=== PATIENT | female | born 1945 ===

== ENCOUNTER 2021-06-10 09:49 | Inpatient (IN) | payer OTHER ==
[~2021-06-10] VITALS: Ht 162.6 cm; Wt 83.6 kg
[2021-06-10] MEDS ORDERED: IPRATROPIUM BROM 0.5 MG/2.5ML INH SOL NEB ONE ×2 (10:15→15:15)
[2021-06-10] MEDS ORDERED: ALBUTEROL SULF 2.5 MG/0.5ML(0.5%) NEB SOLN NEB ONE (10:15)
[2021-06-10] MEDS ORDERED: DexAMETHasone SOD PHOS 10MG/1ML VIAL INJ IV ONE (10:15)
[2021-06-10 10:31] LABS: Basophils # (auto) 0.1 10 ^3/uL (0-0.2); Basophils % (auto) 1.3 % (0.0-2.0); Eosinophils # (auto) 0 10 ^3/uL (0-0.8); Eosinophils % (auto) 0.2 % (0.0-7.0); Hematocrit 39.6 % (36.0-46.0); Hemoglobin 13.1 g/dL (12.2-16.2); Lymphocytes # (auto) 0.3 10 ^3/uL (0.4-5.4); Lymphocytes % (auto) 4.6 % (10.0-50.0); Mean Corpuscular Hemoglobin 27.9 pg (28.0-32.0); Mean Corpuscular Volume 84.5 fL (80.0-100.0); Monocytes # (auto) 0.3 10 ^3/uL (0-1.3); Monocytes % (auto) 4.3 % (0.0-12.0); Neutrophils # (auto) 6.4 10 ^3/uL (1.6-8.6); Neutrophils % (auto) 89.6 % (37.0-80.0); Nucleated Red Blood Cells % 0.1 %; Red Blood Cells 4.69 10^6/uL (4.0-5.20); Red Cell Distribution Width 13.8 % (11.8-14.3); White Blood Cell 7.2 10^3/uL (4.4-10.8)
[2021-06-10] MEDS ORDERED: ONDANSETRON HCL 4 MG/2 ML VIAL ONE (10:45)
[2021-06-10 10:47] LABS: INR 1.02 (0.9-1.15); Partial Thromboplastin Time 25.4 sec (23.6-33.0)
[2021-06-10] MEDS ORDERED: ONDANSETRON HCL 4 MG/2 ML VIAL IV ONE (11:00)
[2021-06-10 11:36] LABS: Albumin 3.2 g/dL (3.4-5.0); BUN/Creatinine Ratio 19.8; Bilirubin, Total 0.7 mg/dL (0.2-1.0); Calcium 8.9 mg/dL (8.5-10.1); Total Protein 7.1 g/dL (6.4-8.2)
[2021-06-10] MEDS ORDERED: cefTRIAXone 1GM/50ML D5W 50 ML IV ONE (12:30)
[2021-06-10] MEDS ORDERED: AZITHROMYCIN 500MG/ 250ML 250 ML IV ONE (12:30)
[2021-06-10] MEDS ORDERED: NITROGLYCERIN 0.4 MG SL TAB SL PRN (12:30)
[2021-06-10] MEDS ORDERED: ACETAMINOPHEN 325 MG TAB PO ONE (12:30)
[2021-06-10] MEDS ORDERED: ACETAMINOPHEN 500 MG TAB PO PRN (14:45)
[2021-06-10] MEDS ORDERED: REMDESIVIR PER PHARMACY 0 ML IV SCH (14:45)
[2021-06-10] MEDS ORDERED: DEXTROSE (50%) 50ML SYRG IV PRN (14:45)
[2021-06-10] MEDS: ASCORBIC ACID 1,000 MG TAB PO SCH (14:54)
[2021-06-10] MEDS: ZINC SULFATE 220mg CAP or TAB PO SCH (14:54)
[2021-06-10] MEDS: CHOLECALCIFEROL (VITD3) 2,000 UNIT CAP/TAB PO SCH (14:54)
[2021-06-10] MEDS ORDERED: HYDROcodone-ACET 5/325MG TAB PO ONE (15:15)
[2021-06-10] MEDS ORDERED: FAMOTIDINE (10MG/ML) 2ML VL IV ONE (15:15)
[2021-06-10] MEDS ORDERED: HYDROcodone-ACET 5/325MG TAB PO PRN (15:15)
[2021-06-10] MEDS ORDERED: DOCUSATE SOD 100 MG CAP PO PRN (15:15)
[2021-06-10] MEDS ORDERED: ALBUMIN 25% 100 ML IV ONE (15:15)
[2021-06-10] MEDS ORDERED: REMDESIVIR 200 MG in NS 210ml LOADING DOSE ADULT IV ONE (16:30)
[2021-06-10 16:44] LABS: Albumin 2.8 g/dL (3.4-5.0); Calcium 8.5 mg/dL (8.5-10.1); INR 1.04 (0.9-1.15); Partial Thromboplastin Time 27.4 sec (23.6-33.0); Potassium 3.8 mmol/L (3.5-5.1)
[2021-06-10 16:53] LABS: BUN/Creatinine Ratio 23.2; Bilirubin, Total 0.5 mg/dL (0.2-1.0); CRP High Sensitivity 14.5 mg/dL (< 0.3); Total Protein 6.6 g/dL (6.4-8.2)
[2021-06-10] MEDS: ACCU-CHEK COMFORT CURVE STRIP VI SCH ×2 (17:00→21:48)
[2021-06-10] MEDS: InsuLIN REG 1unit/0.01ml Soln (100units/ml) SC SCH ×2 (17:00→21:48)
[2021-06-10] MEDS: FUROSEMIDE 20 MG/2 ML VIAL IV SCH (17:33)
[2021-06-10] MEDS ORDERED: IPRATROPIUM BROM 0.5 MG/2.5ML INH SOL NEB SCH (18:00)
[2021-06-10] MEDS ORDERED: PRE1T PO (18:52)
[2021-06-10] MEDS ORDERED: PRAM1TAB33 PO (18:52)
[2021-06-10] MEDS ORDERED: PREG100C PO (18:52)
[2021-06-10] MEDS ORDERED: LEVO112T4 PO (18:52)
[2021-06-10] MEDS ORDERED: CLOP75TA70 PO (18:52)
[2021-06-10] MEDS ORDERED: BUME2TAB5 PO (18:52)
[2021-06-10] MEDS ORDERED: INSLANTI SC ×3 (18:52→22:13)
[2021-06-10] MEDS ORDERED: FURO20TA3 PO (18:52)
[2021-06-10] MEDS ORDERED: TOPI50TA53 PO (18:52)
[2021-06-10] MEDS ORDERED: LISI20TA28 PO (18:52)
[2021-06-10] MEDS ORDERED: LOVA40TA72 PO (18:52)
[2021-06-10] MEDS ORDERED: HYDR-4188 PO (18:52)
[2021-06-10] MEDS ORDERED: POTA10TA51 PO (18:52)
[2021-06-10] MEDS ORDERED: MONT-8 PO (18:52)
[2021-06-10] MEDS ORDERED: METO10TA3 PO (18:52)
[2021-06-10] MEDS ORDERED: PANT1INJ3 PO (18:52)
[2021-06-10 19:01] VITALS: BP 136/91
[2021-06-10] MEDS: BUDESONIDE (INHALATION) 180 MCG IH IN SCH (19:46)
[2021-06-10] MEDS: ALBUTEROL SULF HFA 90MCG INH 200DOSE IN PRN (19:46)
[2021-06-10] MEDS: POTASSIUM CHL 20 Meq TABLET PO SCH (21:44)
[2021-06-10] MEDS: DOXYCYCLINE 100MG/250ML 250 ML IV SCH (21:44)
[2021-06-10] MEDS: ATORVASTATIN 20 MG TAB PO SCH (21:44)
[2021-06-10] MEDS: ENOXAPARIN SOD 40 MG/0.4 ML SYRINGE SC SCH (21:48)
[2021-06-10 22:00] VITALS: BP 132/63
[2021-06-11 05:00] VITALS: BP 147/65
[2021-06-11] MEDS: FUROSEMIDE 20 MG/2 ML VIAL IV SCH ×2 (05:37→17:19)
[2021-06-11] MEDS: ACCU-CHEK COMFORT CURVE STRIP VI SCH ×4 (06:40→21:43)
[2021-06-11 06:42] LABS: Basophils # (auto) 0 10 ^3/uL (0-0.2); Basophils % (auto) 0.3 % (0.0-2.0); Eosinophils # (auto) 0 10 ^3/uL (0-0.8); Hematocrit 36.6 % (36.0-46.0); Hemoglobin 12.1 g/dL (12.2-16.2); Lymphocytes # (auto) 0.4 10 ^3/uL (0.4-5.4); Mean Corpuscular Hemoglobin 27.8 pg (28.0-32.0); Mean Corpuscular Volume 84.3 fL (80.0-100.0); Monocytes # (auto) 0.3 10 ^3/uL (0-1.3); Monocytes % (auto) 5.9 % (0.0-12.0); Neutrophils % (auto) 86.8 % (37.0-80.0); Nucleated Red Blood Cells % 0.1 %; Red Blood Cells 4.34 10^6/uL (4.0-5.20); White Blood Cell 5.7 10^3/uL (4.4-10.8)
[2021-06-11] MEDS: InsuLIN REG 1unit/0.01ml Soln (100units/ml) SC SCH ×4 (06:43→21:45)
[2021-06-11 06:55] LABS: Albumin 2.9 g/dL (3.4-5.0); Calcium 8.3 mg/dL (8.5-10.1); Partial Thromboplastin Time 31.4 sec (23.6-33.0); Potassium 3.9 mmol/L (3.5-5.1)
[2021-06-11] MEDS ORDERED: InsuLIN REG 1unit/0.01ml Soln (100units/ml) SC SCH (07:00)
[2021-06-11 07:01] LABS: BUN/Creatinine Ratio 25.2; Bilirubin, Total 0.5 mg/dL (0.2-1.0); Total Protein 6.6 g/dL (6.4-8.2)
[2021-06-11 08:53] VITALS: BP 157/74
[2021-06-11 09:37] VITALS: BP 135/60
[2021-06-11] MEDS: DOXYCYCLINE 100MG/250ML 250 ML IV SCH ×2 (09:40→21:43)
[2021-06-11] MEDS: DexAMETHasone SOD PHOS 10MG/1ML VIAL INJ IV SCH (09:40)
[2021-06-11] MEDS: POTASSIUM CHL 20 Meq TABLET PO SCH ×2 (09:40→21:42)
[2021-06-11] MEDS: ZINC SULFATE 220mg CAP or TAB PO SCH (09:40)
[2021-06-11] MEDS: ASCORBIC ACID 1,000 MG TAB PO SCH (09:41)
[2021-06-11] MEDS: ENOXAPARIN SOD 40 MG/0.4 ML SYRINGE SC SCH ×2 (09:41→21:43)
[2021-06-11] MEDS: CLOPIDOGREL BISULFATE 75 MG TAB PO SCH (09:41)
[2021-06-11] MEDS: CHOLECALCIFEROL (VITD3) 2,000 UNIT CAP/TAB PO SCH (09:41)
[2021-06-11] MEDS ORDERED: FAMOTIDINE (10MG/ML) 2ML VL IV SCH (10:00)
[2021-06-11] MEDS: BUDESONIDE (INHALATION) 180 MCG IH IN SCH ×2 (10:00→22:00)
[2021-06-11 12:44] VITALS: BP 146/67
[2021-06-11] MEDS: SODIUM CHLORIDE 0.9% 1,000 ML IV SCH (13:16)
[2021-06-11] MEDS: REMDESIVIR 100mg 100 MG in SODIUM CHL 0.9% 230 ML IV SCH (14:53)
[2021-06-11] MEDS ORDERED: guaiFENesin-DM 100/10mg/5ml SYR PO PRN (16:30)
[2021-06-11 16:39] VITALS: BP 118/83
[2021-06-11] MEDS: BUMETANIDE 1 MG TAB PO SCH (17:36)
[2021-06-11] MEDS: LORazepam 0.5 MG TAB PO PRN (21:10)
[2021-06-11] MEDS: PREGABALIN 25 MG CAP PO SCH (21:42)
[2021-06-11] MEDS: ATORVASTATIN 20 MG TAB PO SCH (21:42)
[2021-06-11] MEDS: MONTELUKAST SODIUM 10 MG TAB PO SCH (21:43)
[2021-06-11 22:00] VITALS: BP 152/63
[2021-06-11] MEDS: ALBUTEROL SULF HFA 90MCG INH 200DOSE IN PRN (22:16)
[2021-06-12] MEDS: SODIUM CHLORIDE 0.9% 1,000 ML IV SCH (04:06)
[2021-06-12] MEDS: guaiFENesin-DM 100/10mg/5ml SYR PO PRN ×3 (04:17→22:16)
[2021-06-12 05:00] VITALS: BP 115/54
[2021-06-12] MEDS: ALBUTEROL SULF HFA 90MCG INH 200DOSE IN PRN (06:01)
[2021-06-12] MEDS: BUDESONIDE (INHALATION) 180 MCG IH IN SCH ×2 (06:01→22:00)
[2021-06-12] MEDS: BUMETANIDE 1 MG TAB PO SCH ×2 (06:20→18:00)
[2021-06-12] MEDS: LEVOTHYROXINE SODIUM 112 MCG TAB PO SCH (06:32)
[2021-06-12] MEDS: ACCU-CHEK COMFORT CURVE STRIP VI SCH ×4 (06:33→22:15)
[2021-06-12] MEDS: InsuLIN REG 1unit/0.01ml Soln (100units/ml) SC SCH ×4 (06:33→22:19)
[2021-06-12 07:46] LABS: Basophils # (auto) 0 10 ^3/uL (0-0.2); Basophils % (auto) 0.2 % (0.0-2.0); Eosinophils # (auto) 0 10 ^3/uL (0-0.8); Hematocrit 37.4 % (36.0-46.0); Lymphocytes # (auto) 0.4 10 ^3/uL (0.4-5.4); Lymphocytes % (auto) 5.9 % (10.0-50.0); Mean Corpuscular Hemoglobin 27.6 pg (28.0-32.0); Mean Corpuscular Hgb Conc. 32.1 g/dL (32.0-36.0); Mean Corpuscular Volume 86.1 fL (80.0-100.0); Monocytes # (auto) 0.4 10 ^3/uL (0-1.3); Monocytes % (auto) 6.7 % (0.0-12.0); Neutrophils # (auto) 5.2 10 ^3/uL (1.6-8.6); Neutrophils % (auto) 87.2 % (37.0-80.0); Nucleated Red Blood Cells % 0.2 %; Red Blood Cells 4.35 10^6/uL (4.0-5.20); Red Cell Distribution Width 13.9 % (11.8-14.3)
[2021-06-12 08:02] LABS: Albumin 2.7 g/dL (3.4-5.0); Calcium 8.7 mg/dL (8.5-10.1); Potassium 4.4 mmol/L (3.5-5.1)
[2021-06-12 09:00] VITALS: BP 146/65
[2021-06-12] MEDS: PREGABALIN 25 MG CAP PO SCH ×2 (09:32→22:00)
[2021-06-12] MEDS: CLOPIDOGREL BISULFATE 75 MG TAB PO SCH (09:32)
[2021-06-12] MEDS: POTASSIUM CHL 20 Meq TABLET PO SCH ×2 (09:32→22:00)
[2021-06-12] MEDS: DexAMETHasone SOD PHOS 10MG/1ML VIAL INJ IV SCH (09:32)
[2021-06-12] MEDS: ZINC SULFATE 220mg CAP or TAB PO SCH (09:32)
[2021-06-12] MEDS: ASCORBIC ACID 1,000 MG TAB PO SCH (09:33)
[2021-06-12] MEDS: ENOXAPARIN SOD 40 MG/0.4 ML SYRINGE SC SCH ×2 (09:33→22:15)
[2021-06-12] MEDS: CHOLECALCIFEROL (VITD3) 2,000 UNIT CAP/TAB PO SCH (09:33)
[2021-06-12 10:56] LABS: BUN/Creatinine Ratio 29.4
[2021-06-12] MEDS: PANTOPRAZOLE 40 MG TAB PO SCH (11:04)
[2021-06-12 11:15] LABS: Bilirubin, Total 0.5 mg/dL (0.2-1.0); Total Protein 6.3 g/dL (6.4-8.2)
[2021-06-12] MEDS: REMDESIVIR 100mg 100 MG in SODIUM CHL 0.9% 230 ML IV SCH (11:26)
[2021-06-12 12:50] LABS: CRP High Sensitivity 11.7 mg/dL (< 0.3)
[2021-06-12 13:00] VITALS: BP 132/65
[2021-06-12] MEDS ORDERED: BUME1TAB3 PO (13:01)
[2021-06-12] MEDS ORDERED: LISI-716 PO (13:01)
[2021-06-12] MEDS ORDERED: PRED10TA PO (13:01)
[2021-06-12] MEDS ORDERED: PRAM1TAB2 PO (15:02)
[2021-06-12] MEDS ORDERED: PANT40TA2 PO (15:02)
[2021-06-12] MEDS ORDERED: LEVO100T8 PO (15:02)
[2021-06-12 17:00] VITALS: BP 139/83
[2021-06-12] MEDS: DOXYCYCLINE 100MG/250ML 250 ML IV SCH (18:02)
[2021-06-12 20:00] VITALS: BP 138/74
[2021-06-12 22:00] VITALS: BP 138/74
[2021-06-12] MEDS: MONTELUKAST SODIUM 10 MG TAB PO SCH (22:00)
[2021-06-12] MEDS: ATORVASTATIN 20 MG TAB PO SCH (22:00)
[2021-06-13] VITALS (7 sets, daily range): BP systolic 123–166; BP diastolic 62–75
[2021-06-13] MEDS: guaiFENesin-DM 100/10mg/5ml SYR PO PRN ×2 (03:47→22:07)
[2021-06-13] MEDS: DOXYCYCLINE 100MG/250ML 250 ML IV SCH ×2 (05:03→16:50)
[2021-06-13] MEDS: BUMETANIDE 1 MG TAB PO SCH ×2 (06:00→17:38)
[2021-06-13] MEDS: LEVOTHYROXINE SODIUM 112 MCG TAB PO SCH (06:28)
[2021-06-13] MEDS: ACCU-CHEK COMFORT CURVE STRIP VI SCH ×4 (06:29→22:07)
[2021-06-13] MEDS: InsuLIN REG 1unit/0.01ml Soln (100units/ml) SC SCH ×4 (06:31→22:39)
[2021-06-13 07:03] LABS: Calcium 9.3 mg/dL (8.5-10.1); Potassium 4.2 mmol/L (3.5-5.1)
[2021-06-13 07:11] LABS: BUN/Creatinine Ratio 33.3; Bilirubin, Total 0.7 mg/dL (0.2-1.0); CRP High Sensitivity 8.2 mg/dL (< 0.3); Total Protein 6.9 g/dL (6.4-8.2)
[2021-06-13] MEDS: BUDESONIDE (INHALATION) 180 MCG IH IN SCH ×2 (09:58→22:00)
[2021-06-13] MEDS: ZINC SULFATE 220mg CAP or TAB PO SCH (10:00)
[2021-06-13] MEDS: ASCORBIC ACID 1,000 MG TAB PO SCH (10:00)
[2021-06-13] MEDS: PREGABALIN 25 MG CAP PO SCH ×2 (10:00→22:00)
[2021-06-13] MEDS: PANTOPRAZOLE 40 MG TAB PO SCH (10:00)
[2021-06-13] MEDS: POTASSIUM CHL 20 Meq TABLET PO SCH ×2 (10:00→22:00)
[2021-06-13] MEDS: CLOPIDOGREL BISULFATE 75 MG TAB PO SCH (10:00)
[2021-06-13] MEDS: CHOLECALCIFEROL (VITD3) 2,000 UNIT CAP/TAB PO SCH (10:00)
[2021-06-13] MEDS: ENOXAPARIN SOD 40 MG/0.4 ML SYRINGE SC SCH ×2 (10:23→22:08)
[2021-06-13] MEDS: DexAMETHasone SOD PHOS 10MG/1ML VIAL INJ IV SCH (10:23)
[2021-06-13] MEDS: PANTOPRAZOLE 40 MG/10 ML VIAL INJ IV SCH (13:55)
[2021-06-13] MEDS: REMDESIVIR 100mg 100 MG in SODIUM CHL 0.9% 230 ML IV SCH (15:14)
[2021-06-13] MEDS: hydrALAZINE HCL 20 MG/ML VL IV PRN (18:11)
[2021-06-13] MEDS: ATORVASTATIN 20 MG TAB PO SCH (22:00)
[2021-06-13] MEDS: MONTELUKAST SODIUM 10 MG TAB PO SCH (22:00)
[2021-06-14] MEDS: ONDANSETRON HCL 4 MG/2 ML VIAL IV PRN (00:43)
[2021-06-14] MEDS: DOXYCYCLINE 100MG/250ML 250 ML IV SCH ×2 (04:59→18:06)
[2021-06-14 05:00] VITALS: BP 150/74
[2021-06-14] MEDS: BUDESONIDE (INHALATION) 180 MCG IH IN SCH ×2 (05:47→20:52)
[2021-06-14] MEDS: ALBUTEROL SULF HFA 90MCG INH 200DOSE IN PRN (05:48)
[2021-06-14] MEDS: BUMETANIDE 1 MG TAB PO SCH ×2 (06:00→18:00)
[2021-06-14 06:11] LABS: Albumin 2.7 g/dL (3.4-5.0); Calcium 8.7 mg/dL (8.5-10.1); Potassium 4.4 mmol/L (3.5-5.1)
[2021-06-14 06:19] LABS: BUN/Creatinine Ratio 30.5; Bilirubin, Total 0.8 mg/dL (0.2-1.0); CRP High Sensitivity 6.87 mg/dL (< 0.3); Total Protein 5.7 g/dL (6.4-8.2)
[2021-06-14] MEDS: ACCU-CHEK COMFORT CURVE STRIP VI SCH ×4 (06:44→23:56)
[2021-06-14] MEDS: LEVOTHYROXINE SODIUM 112 MCG TAB PO SCH (06:44)
[2021-06-14] MEDS: InsuLIN REG 1unit/0.01ml Soln (100units/ml) SC SCH ×4 (06:46→23:57)
[2021-06-14 09:00] VITALS: BP 148/73
[2021-06-14] MEDS: DexAMETHasone SOD PHOS 10MG/1ML VIAL INJ IV SCH (09:46)
[2021-06-14] MEDS: PANTOPRAZOLE 40 MG/10 ML VIAL INJ IV SCH (09:46)
[2021-06-14] MEDS: ENOXAPARIN SOD 40 MG/0.4 ML SYRINGE SC SCH ×2 (09:47→21:21)
[2021-06-14] MEDS: PREGABALIN 25 MG CAP PO SCH ×2 (10:00→22:00)
[2021-06-14] MEDS: CHOLECALCIFEROL (VITD3) 2,000 UNIT CAP/TAB PO SCH (10:00)
[2021-06-14] MEDS: CLOPIDOGREL BISULFATE 75 MG TAB PO SCH (10:00)
[2021-06-14] MEDS: ZINC SULFATE 220mg CAP or TAB PO SCH (10:00)
[2021-06-14] MEDS: POTASSIUM CHL 20 Meq TABLET PO SCH ×2 (10:00→22:00)
[2021-06-14] MEDS: ASCORBIC ACID 1,000 MG TAB PO SCH (10:00)
[2021-06-14 13:00] VITALS: BP 138/56
[2021-06-14] MEDS ORDERED: PPN PER PHARMACY 0 ML IV SCH (14:30)
[2021-06-14] MEDS: REMDESIVIR 100mg 100 MG in SODIUM CHL 0.9% 230 ML IV SCH (15:34)
[2021-06-14] MEDS ORDERED: DEXTROSE (50%) 50ML SYRG IV SCH (16:45)
[2021-06-14 17:00] VITALS: BP 130/51
[2021-06-14 20:00] VITALS: BP 132/70
[2021-06-14] MEDS: AMINO ACID INFUSION IN D10W 1,000 ML IV NR (20:27)
[2021-06-14 21:59] VITALS: BP 132/70
[2021-06-14] MEDS: MONTELUKAST SODIUM 10 MG TAB PO SCH (22:00)
[2021-06-14] MEDS: ATORVASTATIN 20 MG TAB PO SCH (22:00)
[2021-06-15 04:39] VITALS: BP 128/66
[2021-06-15 05:36] LABS: Potassium 3.9 mmol/L (3.5-5.1)
[2021-06-15] MEDS: DOXYCYCLINE 100MG/250ML 250 ML IV SCH ×2 (05:45→14:59)
[2021-06-15] MEDS: ACCU-CHEK COMFORT CURVE STRIP VI SCH ×3 (05:45→17:17)
[2021-06-15] MEDS: BUMETANIDE 1 MG TAB PO SCH ×2 (06:00→17:41)
[2021-06-15 06:04] LABS: Albumin 2.4 g/dL (3.4-5.0); BUN/Creatinine Ratio 34.4; Bilirubin, Total 0.7 mg/dL (0.2-1.0); CRP High Sensitivity 6.41 mg/dL (< 0.3); Calcium 8.7 mg/dL (8.5-10.1); Magnesium 2.6 mg/dL (1.6-2.6); Phosphorus 3.7 mg/dL (2.5-4.90); Pre Albumin 9.7 mg/dL (20.0-40.0)
[2021-06-15] MEDS: LEVOTHYROXINE SODIUM 112 MCG TAB PO SCH (06:15)
[2021-06-15] MEDS: InsuLIN REG 1unit/0.01ml Soln (100units/ml) SC SCH ×3 (06:16→17:17)
[2021-06-15] MEDS: BUDESONIDE (INHALATION) 180 MCG IH IN SCH ×2 (06:18→19:55)
[2021-06-15] MEDS: ALBUTEROL SULF HFA 90MCG INH 200DOSE IN PRN ×2 (07:29→19:55)
[2021-06-15 08:30] VITALS: BP 149/56
[2021-06-15] MEDS: DexAMETHasone SOD PHOS 10MG/1ML VIAL INJ IV SCH (09:58)
[2021-06-15] MEDS: PANTOPRAZOLE 40 MG/10 ML VIAL INJ IV SCH (09:59)
[2021-06-15] MEDS: PREGABALIN 25 MG CAP PO SCH ×3 (10:00→22:00)
[2021-06-15] MEDS: POTASSIUM CHL 20 Meq TABLET PO SCH ×3 (10:00→22:00)
[2021-06-15] MEDS: ASCORBIC ACID 1,000 MG TAB PO SCH (10:00)
[2021-06-15] MEDS: CHOLECALCIFEROL (VITD3) 2,000 UNIT CAP/TAB PO SCH (10:00)
[2021-06-15] MEDS: ZINC SULFATE 220mg CAP or TAB PO SCH (10:00)
[2021-06-15] MEDS: ENOXAPARIN SOD 40 MG/0.4 ML SYRINGE SC SCH ×2 (10:00→21:58)
[2021-06-15] MEDS: CLOPIDOGREL BISULFATE 75 MG TAB PO SCH (10:00)
[2021-06-15 12:30] VITALS: BP 138/63
[2021-06-15 17:00] VITALS: BP 137/63
[2021-06-15] MEDS: AMINO ACID INFUSION IN D10W 1,000 ML IV NR (19:49)
[2021-06-15 20:00] VITALS: BP 130/60
[2021-06-15] MEDS ORDERED: PPN PER PHARMACY IV NR ×6 (20:00)
[2021-06-15] MEDS: ONDANSETRON HCL 4 MG/2 ML VIAL IV PRN (21:08)
[2021-06-15 21:42] VITALS: BP_SYST 130; BP_SYST 160; BP_DIAS 60
[2021-06-15] MEDS: MONTELUKAST SODIUM 10 MG TAB PO SCH ×2 (21:58→22:00)
[2021-06-15] MEDS: ATORVASTATIN 20 MG TAB PO SCH ×2 (21:58→22:00)
[2021-06-16] VITALS (9 sets, daily range): BP systolic 143–163; BP diastolic 51–90
[2021-06-16] MEDS: InsuLIN REG 1unit/0.01ml Soln (100units/ml) SC SCH ×4 (00:17→16:37)
[2021-06-16] MEDS: ACCU-CHEK COMFORT CURVE STRIP VI SCH ×4 (00:18→18:00)
[2021-06-16] MEDS: BUMETANIDE 1 MG TAB PO SCH ×2 (06:12→18:00)
[2021-06-16 06:40] LABS: Albumin 2.6 g/dL (3.4-5.0); Calcium 9.2 mg/dL (8.5-10.1); Magnesium 2.4 mg/dL (1.6-2.6)
[2021-06-16] MEDS: BUDESONIDE (INHALATION) 180 MCG IH IN SCH ×2 (06:40→19:24)
[2021-06-16] MEDS: ALBUTEROL SULF HFA 90MCG INH 200DOSE IN PRN ×2 (06:40→19:24)
[2021-06-16] MEDS: LEVOTHYROXINE SODIUM 112 MCG TAB PO SCH (06:43)
[2021-06-16 06:49] LABS: Bilirubin, Total 0.8 mg/dL (0.2-1.0); CRP High Sensitivity 6.96 mg/dL (< 0.3); Phosphorus 3.1 mg/dL (2.5-4.90); Total Protein 6.5 g/dL (6.4-8.2)
[2021-06-16] MEDS: DexAMETHasone SOD PHOS 10MG/1ML VIAL INJ IV SCH (08:09)
[2021-06-16] MEDS: ENOXAPARIN SOD 40 MG/0.4 ML SYRINGE SC SCH ×2 (08:09→22:44)
[2021-06-16] MEDS: PANTOPRAZOLE 40 MG/10 ML VIAL INJ IV SCH (08:09)
[2021-06-16] MEDS: POTASSIUM CHL 20 Meq TABLET PO SCH ×2 (08:10→22:00)
[2021-06-16] MEDS: PREGABALIN 25 MG CAP PO SCH ×2 (08:10→22:00)
[2021-06-16] MEDS: CHOLECALCIFEROL (VITD3) 2,000 UNIT CAP/TAB PO SCH (08:10)
[2021-06-16] MEDS: ZINC SULFATE 220mg CAP or TAB PO SCH (08:10)
[2021-06-16] MEDS: CLOPIDOGREL BISULFATE 75 MG TAB PO SCH (08:10)
[2021-06-16] MEDS: ASCORBIC ACID 1,000 MG TAB PO SCH (08:10)
[2021-06-16 10:48] LABS: Basophils # (auto) 0 10 ^3/uL (0-0.2); Basophils % (auto) 0.3 % (0.0-2.0); Eosinophils # (auto) 0 10 ^3/uL (0-0.8); Eosinophils % (auto) 0.1 % (0.0-7.0); Hematocrit 42.1 % (36.0-46.0); Hemoglobin 13.6 g/dL (12.2-16.2); Lymphocytes # (auto) 0.2 10 ^3/uL (0.4-5.4); Lymphocytes % (auto) 2.5 % (10.0-50.0); Mean Corpuscular Hemoglobin 27.8 pg (28.0-32.0); Mean Corpuscular Hgb Conc. 32.4 g/dL (32.0-36.0); Mean Corpuscular Volume 85.8 fL (80.0-100.0); Monocytes # (auto) 0.5 10 ^3/uL (0-1.3); Monocytes % (auto) 4.8 % (0.0-12.0); Neutrophils # (auto) 9.2 10 ^3/uL (1.6-8.6); Neutrophils % (auto) 92.3 % (37.0-80.0); Nucleated Red Blood Cells % 0.1 %; Red Blood Cells 4.91 10^6/uL (4.0-5.20); Red Cell Distribution Width 13.7 % (11.8-14.3); White Blood Cell 9.9 10^3/uL (4.4-10.8)
[2021-06-16] MEDS ORDERED: PPN PER PHARMACY IV NR ×9 (20:00)
[2021-06-16] MEDS: ONDANSETRON HCL 4 MG/2 ML VIAL IV PRN (20:25)
[2021-06-16] MEDS: MONTELUKAST SODIUM 10 MG TAB PO SCH (22:00)
[2021-06-16] MEDS: ATORVASTATIN 20 MG TAB PO SCH (22:00)
[2021-06-17] MEDS: ACCU-CHEK COMFORT CURVE STRIP VI SCH ×4 (00:33→17:44)
[2021-06-17] MEDS: InsuLIN REG 1unit/0.01ml Soln (100units/ml) SC SCH ×4 (00:33→17:40)
[2021-06-17 05:00] VITALS: BP 127/61
[2021-06-17] MEDS: BUMETANIDE 1 MG TAB PO SCH ×2 (05:41→17:44)
[2021-06-17 06:01] LABS: Basophils # (auto) 0.1 10 ^3/uL (0-0.2); Basophils % (auto) 0.7 % (0.0-2.0); Eosinophils # (auto) 0 10 ^3/uL (0-0.8); Eosinophils % (auto) 0.2 % (0.0-7.0); Hematocrit 42.9 % (36.0-46.0); Lymphocytes # (auto) 0.2 10 ^3/uL (0.4-5.4); Lymphocytes % (auto) 1.6 % (10.0-50.0); Mean Corpuscular Hemoglobin 27.7 pg (28.0-32.0); Mean Corpuscular Hgb Conc. 32.5 g/dL (32.0-36.0); Monocytes # (auto) 0.4 10 ^3/uL (0-1.3); Monocytes % (auto) 3.3 % (0.0-12.0); Neutrophils # (auto) 10.6 10 ^3/uL (1.6-8.6); Neutrophils % (auto) 94.2 % (37.0-80.0); Nucleated Red Blood Cells % 0.1 %; Red Blood Cells 5.05 10^6/uL (4.0-5.20); White Blood Cell 11.3 10^3/uL (4.4-10.8)
[2021-06-17 06:23] LABS: Albumin 2.5 g/dL (3.4-5.0); Calcium 8.7 mg/dL (8.5-10.1); Magnesium 2.5 mg/dL (1.6-2.6); Potassium 4.6 mmol/L (3.5-5.1)
[2021-06-17 06:33] LABS: BUN/Creatinine Ratio 40.7; Bilirubin, Total 1.2 mg/dL (0.2-1.0); CRP High Sensitivity 12.7 mg/dL (< 0.3); Phosphorus 3.6 mg/dL (2.5-4.90); Total Protein 5.7 g/dL (6.4-8.2)
[2021-06-17] MEDS: LEVOTHYROXINE SODIUM 112 MCG TAB PO SCH (07:00)
[2021-06-17] MEDS: ALBUTEROL SULF HFA 90MCG INH 200DOSE IN PRN (07:20)
[2021-06-17] MEDS: BUDESONIDE (INHALATION) 180 MCG IH IN SCH ×2 (07:20→22:00)
[2021-06-17 08:27] VITALS: BP 128/72
[2021-06-17] MEDS: DexAMETHasone SOD PHOS 10MG/1ML VIAL INJ IV SCH (08:36)
[2021-06-17] MEDS: PANTOPRAZOLE 40 MG/10 ML VIAL INJ IV SCH (08:37)
[2021-06-17] MEDS: ENOXAPARIN SOD 40 MG/0.4 ML SYRINGE SC SCH ×2 (08:38→22:46)
[2021-06-17] MEDS: ZINC SULFATE 220mg CAP or TAB PO SCH (08:39)
[2021-06-17] MEDS: POTASSIUM CHL 20 Meq TABLET PO SCH ×2 (08:39→22:00)
[2021-06-17] MEDS: ASCORBIC ACID 1,000 MG TAB PO SCH (08:40)
[2021-06-17] MEDS: PREGABALIN 25 MG CAP PO SCH ×2 (08:40→22:00)
[2021-06-17] MEDS: CLOPIDOGREL BISULFATE 75 MG TAB PO SCH (08:40)
[2021-06-17] MEDS: CHOLECALCIFEROL (VITD3) 2,000 UNIT CAP/TAB PO SCH (08:40)
[2021-06-17] MEDS: LORazepam 0.5 MG TAB PO PRN (09:35)
[2021-06-17 11:57] VITALS: BP 133/65
[2021-06-17 16:45] VITALS: BP 167/71
[2021-06-17] MEDS ORDERED: PPN PER PHARMACY IV NR ×6 (20:00)
[2021-06-17 21:34] VITALS: BP 132/72
[2021-06-17] MEDS: MONTELUKAST SODIUM 10 MG TAB PO SCH (22:00)
[2021-06-17] MEDS: ATORVASTATIN 20 MG TAB PO SCH (22:00)
[2021-06-18] VITALS (10 sets, daily range): BP systolic 133–163; BP diastolic 51–80
[2021-06-18] MEDS: ACCU-CHEK COMFORT CURVE STRIP VI SCH ×4 (00:04→17:20)
[2021-06-18] MEDS: InsuLIN REG 1unit/0.01ml Soln (100units/ml) SC SCH ×4 (00:04→17:21)
[2021-06-18] MEDS: BUMETANIDE 1 MG TAB PO SCH ×2 (06:00→17:21)
[2021-06-18] MEDS: LEVOTHYROXINE SODIUM 112 MCG TAB PO SCH (06:24)
[2021-06-18 07:43] LABS: Eosinophils # (auto) 0.1 10 ^3/uL (0-0.8); Lymphocytes # (auto) 0.2 10 ^3/uL (0.4-5.4); Mean Corpuscular Volume 85.2 fL (80.0-100.0); Monocytes # (auto) 0.3 10 ^3/uL (0-1.3); Neutrophils % (auto) 95.2 % (37.0-80.0)
[2021-06-18 07:45] LABS: Basophils # (auto) 0 10 ^3/uL (0-0.2); Basophils % (auto) 0.4 % (0.0-2.0); Eosinophils % (auto) 0.7 % (0.0-7.0); Hematocrit 43.7 % (36.0-46.0); Hemoglobin 13.7 g/dL (12.2-16.2); Lymphocytes % (auto) 1.3 % (10.0-50.0); Mean Corpuscular Hemoglobin 26.8 pg (28.0-32.0); Mean Corpuscular Hgb Conc. 31.4 g/dL (32.0-36.0); Monocytes % (auto) 2.4 % (0.0-12.0); Neutrophils # (auto) 11.6 10 ^3/uL (1.6-8.6); Red Blood Cells 5.13 10^6/uL (4.0-5.20); Red Cell Distribution Width 14.2 % (11.8-14.3); White Blood Cell 12.2 10^3/uL (4.4-10.8)
[2021-06-18 07:58] LABS: Albumin 2.2 g/dL (3.4-5.0); Calcium 8.9 mg/dL (8.5-10.1); Potassium 3.9 mmol/L (3.5-5.1)
[2021-06-18 08:11] LABS: BUN/Creatinine Ratio 48.6; CRP High Sensitivity 17.4 mg/dL (< 0.3); Phosphorus 2.6 mg/dL (2.5-4.90); Total Protein 6.6 g/dL (6.4-8.2)
[2021-06-18] MEDS: DexAMETHasone SOD PHOS 10MG/1ML VIAL INJ IV SCH (09:04)
[2021-06-18] MEDS: PANTOPRAZOLE 40 MG/10 ML VIAL INJ IV SCH (09:05)
[2021-06-18] MEDS: ENOXAPARIN SOD 40 MG/0.4 ML SYRINGE SC SCH ×2 (09:05→21:54)
[2021-06-18] MEDS: PREGABALIN 25 MG CAP PO SCH ×2 (09:12→22:00)
[2021-06-18] MEDS: CHOLECALCIFEROL (VITD3) 2,000 UNIT CAP/TAB PO SCH (09:12)
[2021-06-18] MEDS: CLOPIDOGREL BISULFATE 75 MG TAB PO SCH (09:12)
[2021-06-18] MEDS: ZINC SULFATE 220mg CAP or TAB PO SCH (09:12)
[2021-06-18] MEDS: ASCORBIC ACID 1,000 MG TAB PO SCH (09:12)
[2021-06-18] MEDS: POTASSIUM CHL 20 Meq TABLET PO SCH ×2 (09:12→22:00)
[2021-06-18] MEDS: hydrALAZINE HCL 20 MG/ML VL IV PRN (10:11)
[2021-06-18] MEDS: BUDESONIDE (INHALATION) 180 MCG IH IN SCH ×2 (10:52→21:13)
[2021-06-18] MEDS ORDERED: PPN PER PHARMACY IV NR ×8 (20:00)
[2021-06-18] MEDS: ONDANSETRON HCL 4 MG/2 ML VIAL IV PRN (21:55)
[2021-06-18] MEDS: MONTELUKAST SODIUM 10 MG TAB PO SCH (22:00)
[2021-06-18] MEDS: ATORVASTATIN 20 MG TAB PO SCH (22:00)
[2021-06-19] VITALS (10 sets, daily range): BP systolic 135–156; BP diastolic 62–119
[2021-06-19] MEDS: ACCU-CHEK COMFORT CURVE STRIP VI SCH ×5 (00:26→23:18)
[2021-06-19] MEDS: InsuLIN REG 1unit/0.01ml Soln (100units/ml) SC SCH ×4 (00:31→17:26)
[2021-06-19] MEDS: BUMETANIDE 1 MG TAB PO SCH ×2 (06:00→17:13)
[2021-06-19 06:06] LABS: Basophils # (auto) 0 10 ^3/uL (0-0.2); Basophils % (auto) 0.3 % (0.0-2.0); Eosinophils # (auto) 0 10 ^3/uL (0-0.8); Hematocrit 41.5 % (36.0-46.0); Hemoglobin 13.8 g/dL (12.2-16.2); Lymphocytes # (auto) 0.2 10 ^3/uL (0.4-5.4); Lymphocytes % (auto) 1.8 % (10.0-50.0); Mean Corpuscular Hgb Conc. 33.1 g/dL (32.0-36.0); Mean Corpuscular Volume 84.4 fL (80.0-100.0); Monocytes # (auto) 0.5 10 ^3/uL (0-1.3); Monocytes % (auto) 4.2 % (0.0-12.0); Neutrophils # (auto) 10.7 10 ^3/uL (1.6-8.6); Neutrophils % (auto) 93.7 % (37.0-80.0); Nucleated Red Blood Cells % 0.1 %; Red Blood Cells 4.92 10^6/uL (4.0-5.20); White Blood Cell 11.5 10^3/uL (4.4-10.8)
[2021-06-19 06:30] LABS: BUN/Creatinine Ratio 60.4; Calcium 8.9 mg/dL (8.5-10.1); Magnesium 2.5 mg/dL (1.6-2.6); Potassium 4.1 mmol/L (3.5-5.1)
[2021-06-19 06:33] LABS: Bilirubin, Total 0.9 mg/dL (0.2-1.0); Phosphorus 3.3 mg/dL (2.5-4.90); Total Protein 6.1 g/dL (6.4-8.2)
[2021-06-19] MEDS: LEVOTHYROXINE SODIUM 112 MCG TAB PO SCH (07:00)
[2021-06-19] MEDS: BUDESONIDE (INHALATION) 180 MCG IH IN SCH ×2 (07:19→20:11)
[2021-06-19] MEDS: POTASSIUM CHL 20 Meq TABLET PO SCH ×2 (10:00→22:00)
[2021-06-19] MEDS: CHOLECALCIFEROL (VITD3) 2,000 UNIT CAP/TAB PO SCH (10:00)
[2021-06-19] MEDS: PREGABALIN 25 MG CAP PO SCH ×2 (10:00→22:00)
[2021-06-19] MEDS: CLOPIDOGREL BISULFATE 75 MG TAB PO SCH (10:00)
[2021-06-19] MEDS: ASCORBIC ACID 1,000 MG TAB PO SCH (10:00)
[2021-06-19] MEDS: ZINC SULFATE 220mg CAP or TAB PO SCH (10:00)
[2021-06-19] MEDS: MORPHINE SULFATE INJECTION 2 MG/ML SYRG IV PRN ×4 (10:10→23:05)
[2021-06-19] MEDS: ENOXAPARIN SOD 40 MG/0.4 ML SYRINGE SC SCH ×2 (10:10→22:55)
[2021-06-19] MEDS: PANTOPRAZOLE 40 MG/10 ML VIAL INJ IV SCH (10:10)
[2021-06-19] MEDS: DexAMETHasone SOD PHOS 10MG/1ML VIAL INJ IV SCH (10:10)
[2021-06-19] MEDS: ONDANSETRON HCL 4 MG/2 ML VIAL IV PRN ×2 (10:15→16:30)
[2021-06-19] MEDS ORDERED: PPN PER PHARMACY IV NR ×9 (20:00)
[2021-06-19] MEDS: MONTELUKAST SODIUM 10 MG TAB PO SCH (22:00)
[2021-06-19] MEDS: ATORVASTATIN 20 MG TAB PO SCH (22:00)
[2021-06-20] MEDS: InsuLIN REG 1unit/0.01ml Soln (100units/ml) SC SCH ×4 (00:15→18:21)
[2021-06-20 04:17] VITALS: BP 159/88
[2021-06-20] MEDS: MORPHINE SULFATE INJECTION 2 MG/ML SYRG IV PRN ×4 (05:31→21:13)
[2021-06-20] MEDS: BUMETANIDE 1 MG TAB PO SCH ×2 (06:00→17:47)
[2021-06-20] MEDS: ACCU-CHEK COMFORT CURVE STRIP VI SCH ×3 (06:01→17:47)
[2021-06-20] MEDS: LEVOTHYROXINE SODIUM 112 MCG TAB PO SCH (06:21)
[2021-06-20] MEDS: BUDESONIDE (INHALATION) 180 MCG IH IN SCH ×2 (06:30→21:24)
[2021-06-20 07:51] LABS: Basophils # (auto) 0 10 ^3/uL (0-0.2); Basophils % (auto) 0.2 % (0.0-2.0); Eosinophils # (auto) 0 10 ^3/uL (0-0.8); Hematocrit 46.3 % (36.0-46.0); Hemoglobin 14.6 g/dL (12.2-16.2); Lymphocytes # (auto) 0.2 10 ^3/uL (0.4-5.4); Lymphocytes % (auto) 2.1 % (10.0-50.0); Mean Corpuscular Hemoglobin 27.6 pg (28.0-32.0); Mean Corpuscular Hgb Conc. 31.6 g/dL (32.0-36.0); Mean Corpuscular Volume 87.4 fL (80.0-100.0); Monocytes # (auto) 0.7 10 ^3/uL (0-1.3); Monocytes % (auto) 6.3 % (0.0-12.0); Neutrophils # (auto) 10.8 10 ^3/uL (1.6-8.6); Neutrophils % (auto) 91.4 % (37.0-80.0); Nucleated Red Blood Cells % 0.1 %; Red Cell Distribution Width 14.2 % (11.8-14.3); White Blood Cell 11.8 10^3/uL (4.4-10.8)
[2021-06-20 08:10] LABS: Albumin 2.1 g/dL (3.4-5.0); Calcium 9.5 mg/dL (8.5-10.1); Magnesium 3.4 mg/dL (1.6-2.6); Potassium 4.1 mmol/L (3.5-5.1)
[2021-06-20 08:14] LABS: BUN/Creatinine Ratio 65.2; Bilirubin, Total 0.8 mg/dL (0.2-1.0); Phosphorus 2.9 mg/dL (2.5-4.90)
[2021-06-20 09:00] VITALS: BP 142/76
[2021-06-20] MEDS: POTASSIUM CHL 20 Meq TABLET PO SCH ×2 (10:00→22:00)
[2021-06-20] MEDS: ENOXAPARIN SOD 40 MG/0.4 ML SYRINGE SC SCH ×2 (10:00→22:05)
[2021-06-20] MEDS: CHOLECALCIFEROL (VITD3) 2,000 UNIT CAP/TAB PO SCH (10:00)
[2021-06-20] MEDS: ONDANSETRON HCL 4 MG/2 ML VIAL IV PRN ×2 (10:00→17:00)
[2021-06-20] MEDS: ASCORBIC ACID 1,000 MG TAB PO SCH (10:00)
[2021-06-20] MEDS: PREGABALIN 25 MG CAP PO SCH ×2 (10:00→22:00)
[2021-06-20] MEDS: ZINC SULFATE 220mg CAP or TAB PO SCH (10:00)
[2021-06-20] MEDS: CLOPIDOGREL BISULFATE 75 MG TAB PO SCH (10:00)
[2021-06-20] MEDS: DexAMETHasone SOD PHOS 10MG/1ML VIAL INJ IV SCH (10:00)
[2021-06-20] MEDS: PANTOPRAZOLE 40 MG/10 ML VIAL INJ IV SCH (10:00)
[2021-06-20 11:00] VITALS: BP 135/62
[2021-06-20] MEDS: LORazepam 2MG/ML-1ML VIAL IV PRN (12:38)
[2021-06-20 13:00] VITALS: BP 127/57
[2021-06-20 16:45] VITALS: BP 136/76
[2021-06-20] MEDS ORDERED: PPN PER PHARMACY IV NR ×9 (20:00)
[2021-06-20 21:28] VITALS: BP 145/61
[2021-06-20] MEDS: MONTELUKAST SODIUM 10 MG TAB PO SCH (22:00)
[2021-06-20] MEDS: ATORVASTATIN 20 MG TAB PO SCH (22:00)
[2021-06-21] VITALS (9 sets, daily range): BP systolic 136–158; BP diastolic 59–64
[2021-06-21] MEDS: MORPHINE SULFATE INJECTION 2 MG/ML SYRG IV PRN ×4 (01:09→18:25)
[2021-06-21] MEDS: InsuLIN REG 1unit/0.01ml Soln (100units/ml) SC SCH ×4 (01:12→18:26)
[2021-06-21] MEDS: ACCU-CHEK COMFORT CURVE STRIP VI SCH ×4 (01:15→18:25)
[2021-06-21] MEDS: BUMETANIDE 1 MG TAB PO SCH ×2 (06:00→18:00)
[2021-06-21] MEDS: LEVOTHYROXINE SODIUM 112 MCG TAB PO SCH (06:11)
[2021-06-21] MEDS: BUDESONIDE (INHALATION) 180 MCG IH IN SCH (06:40)
[2021-06-21 07:58] LABS: Albumin 2.4 g/dL (3.4-5.0); Calcium 9.5 mg/dL (8.5-10.1); Magnesium 2.8 mg/dL (1.6-2.6); Potassium 4.3 mmol/L (3.5-5.1)
[2021-06-21 08:01] LABS: Bilirubin, Total 0.8 mg/dL (0.2-1.0); Phosphorus 3.2 mg/dL (2.5-4.90); Total Protein 6.4 g/dL (6.4-8.2)
[2021-06-21 08:11] LABS: Hematocrit 46.3 % (36.0-46.0); Hemoglobin 15.3 g/dL (12.2-16.2); Mean Corpuscular Hemoglobin 28.5 pg (28.0-32.0); Mean Corpuscular Hgb Conc. 33.1 g/dL (32.0-36.0); Mean Corpuscular Volume 86.1 fL (80.0-100.0); Red Blood Cells 5.38 10^6/uL (4.0-5.20); Red Cell Distribution Width 14.1 % (11.8-14.3); White Blood Cell 13.8 10^3/uL (4.4-10.8)
[2021-06-21 08:20] LABS: Basophils % (manual) 0 (0.0-2.0); Blast Cells 0; Eosinophils % (manual) 0 (0-7); Metamyelocytes % 0; Myelocytes % 0; Promyelocytes % 0; Reactive Lymphocytes 0
[2021-06-21 08:49] LABS: BUN/Creatinine Ratio 73.7
[2021-06-21] MEDS: ASCORBIC ACID 1,000 MG TAB PO SCH (10:00)
[2021-06-21] MEDS: ZINC SULFATE 220mg CAP or TAB PO SCH (10:00)
[2021-06-21] MEDS: CHOLECALCIFEROL (VITD3) 2,000 UNIT CAP/TAB PO SCH (10:00)
[2021-06-21] MEDS: CLOPIDOGREL BISULFATE 75 MG TAB PO SCH (10:00)
[2021-06-21] MEDS: POTASSIUM CHL 20 Meq TABLET PO SCH ×2 (10:00→21:35)
[2021-06-21] MEDS: PREGABALIN 25 MG CAP PO SCH ×2 (10:00→21:36)
[2021-06-21] MEDS: DexAMETHasone SOD PHOS 10MG/1ML VIAL INJ IV SCH (10:18)
[2021-06-21] MEDS: PANTOPRAZOLE 40 MG/10 ML VIAL INJ IV SCH (10:18)
[2021-06-21] MEDS: ONDANSETRON HCL 4 MG/2 ML VIAL IV PRN (10:19)
[2021-06-21] MEDS: ENOXAPARIN SOD 40 MG/0.4 ML SYRINGE SC SCH ×2 (10:19→21:37)
[2021-06-21 12:15] LABS: Band Neutrophils % (manual) 1; Lymphocytes % (manual) 3 (10.0-50.0); Monocytes % (manual) 6 (0-12)
[2021-06-21] MEDS ORDERED: PPN PER PHARMACY IV NR ×7 (20:00)
[2021-06-21] MEDS: ATORVASTATIN 20 MG TAB PO SCH (21:35)
[2021-06-21] MEDS: MONTELUKAST SODIUM 10 MG TAB PO SCH (21:36)
[2021-06-21] MEDS: BUDESONIDE (INHALATION) 0.5 MG/2 ML NEB NEB SCH (22:51)
[2021-06-21] MEDS: ALBUTEROL SULF 2.5 MG/0.5ML(0.5%) NEB SOLN NEB PRN (22:51)
[2021-06-22] VITALS (10 sets, daily range): BP systolic 147–154; BP diastolic 58–69
[2021-06-22] MEDS: ACCU-CHEK COMFORT CURVE STRIP VI SCH ×5 (00:05→23:51)
[2021-06-22] MEDS: MORPHINE SULFATE INJECTION 2 MG/ML SYRG IV PRN ×3 (00:05→17:31)
[2021-06-22] MEDS: InsuLIN REG 1unit/0.01ml Soln (100units/ml) SC SCH ×5 (00:07→23:53)
[2021-06-22] MEDS: LORazepam 2MG/ML-1ML VIAL IV PRN ×3 (03:30→19:33)
[2021-06-22] MEDS: BUMETANIDE 1 MG TAB PO SCH ×2 (05:55→17:29)
[2021-06-22] MEDS: LEVOTHYROXINE SODIUM 112 MCG TAB PO SCH (06:39)
[2021-06-22] MEDS: PANTOPRAZOLE 40 MG/10 ML VIAL INJ IV SCH (08:38)
[2021-06-22] MEDS: DexAMETHasone SOD PHOS 10MG/1ML VIAL INJ IV SCH (08:38)
[2021-06-22 08:47] LABS: Basophils # (auto) 0.2 10 ^3/uL (0-0.2); Basophils % (auto) 1.2 % (0.0-2.0); Eosinophils # (auto) 0 10 ^3/uL (0-0.8); Eosinophils % (auto) 0.1 % (0.0-7.0); Hematocrit 48.5 % (36.0-46.0); Hemoglobin 15.5 g/dL (12.2-16.2); Lymphocytes # (auto) 0.3 10 ^3/uL (0.4-5.4); Lymphocytes % (auto) 1.9 % (10.0-50.0); Mean Corpuscular Hemoglobin 27.9 pg (28.0-32.0); Mean Corpuscular Volume 87.3 fL (80.0-100.0); Monocytes # (auto) 0.6 10 ^3/uL (0-1.3); Neutrophils # (auto) 14.9 10 ^3/uL (1.6-8.6); Neutrophils % (auto) 92.8 % (37.0-80.0); Red Blood Cells 5.56 10^6/uL (4.0-5.20); Red Cell Distribution Width 14.2 % (11.8-14.3); White Blood Cell 16.1 10^3/uL (4.4-10.8)
[2021-06-22] MEDS: CHOLECALCIFEROL (VITD3) 2,000 UNIT CAP/TAB PO SCH (09:52)
[2021-06-22] MEDS: PREGABALIN 25 MG CAP PO SCH ×2 (09:52→21:58)
[2021-06-22] MEDS: POTASSIUM CHL 20 Meq TABLET PO SCH ×2 (09:52→21:58)
[2021-06-22] MEDS: ZINC SULFATE 220mg CAP or TAB PO SCH (09:52)
[2021-06-22] MEDS: ASCORBIC ACID 1,000 MG TAB PO SCH (09:52)
[2021-06-22] MEDS: CLOPIDOGREL BISULFATE 75 MG TAB PO SCH (09:52)
[2021-06-22 11:44] LABS: Triglycerides 12 mg/dL (< 150)
[2021-06-22 11:49] LABS: Pre Albumin < 3.0 mg/dL (20.0-40.0)
[2021-06-22] MEDS: ALBUTEROL SULF 2.5 MG/0.5ML(0.5%) NEB SOLN NEB PRN ×2 (15:02→20:45)
[2021-06-22] MEDS: BUDESONIDE (INHALATION) 0.5 MG/2 ML NEB NEB SCH ×2 (15:02→20:45)
[2021-06-22 18:31] LABS: Alkaline Phosphatase 179 U/L (45-117); Anion Gap 4 (5-15); Aspartate Aminotransferase 45 U/L (15-37); Blood Urea Nitrogen 47 mg/dL (7-18); Carbon Dioxide 30 mmol/L (21-32); Chloride 112 mmol/L (98-107); GFR African American 81 mL/min; GFR Non-African American 67 mL/min; Glucose 203 mg/dL (74-106); Potassium 4.2 mmol/L (3.5-5.1); Sodium 146 mmol/L (136-145)
[2021-06-22 18:32] LABS: Alanine Aminotransferase 21 U/L (13-56); Albumin 2.2 g/dL (3.4-5.0); Bilirubin, Total 1.6 mg/dL (0.2-1.0); Calcium 9.1 mg/dL (8.5-10.1); Magnesium 2.9 mg/dL (1.6-2.6); Phosphorus 2.8 mg/dL (2.5-4.90); Total Protein 6.5 g/dL (6.4-8.2)
[2021-06-22] MEDS: PPN PER PHARMACY IV NR ×6 (19:59)
[2021-06-22] MEDS: MONTELUKAST SODIUM 10 MG TAB PO SCH (21:58)
[2021-06-22] MEDS: ATORVASTATIN 20 MG TAB PO SCH (21:58)
[2021-06-23] VITALS (9 sets, daily range): BP systolic 141–160; BP diastolic 55–73
[2021-06-23] MEDS: MORPHINE SULFATE INJECTION 2 MG/ML SYRG IV PRN ×4 (05:35→20:32)
[2021-06-23] MEDS: ONDANSETRON HCL 4 MG/2 ML VIAL IV PRN ×4 (05:38→20:32)
[2021-06-23] MEDS: InsuLIN REG 1unit/0.01ml Soln (100units/ml) SC SCH ×4 (05:42→23:58)
[2021-06-23] MEDS: BUMETANIDE 1 MG TAB PO SCH (05:43)
[2021-06-23] MEDS: ACCU-CHEK COMFORT CURVE STRIP VI SCH ×4 (06:16→23:57)
[2021-06-23] MEDS: LEVOTHYROXINE SODIUM 112 MCG TAB PO SCH (06:43)
[2021-06-23] MEDS: BUDESONIDE (INHALATION) 0.5 MG/2 ML NEB NEB SCH ×2 (07:07→19:23)
[2021-06-23] MEDS: ALBUTEROL SULF 2.5 MG/0.5ML(0.5%) NEB SOLN NEB PRN ×2 (07:07→19:24)
[2021-06-23 07:49] LABS: Basophils # (auto) 0 10 ^3/uL (0-0.2); Basophils % (auto) 0.1 % (0.0-2.0); Eosinophils # (auto) 0 10 ^3/uL (0-0.8); Eosinophils % (auto) 0.3 % (0.0-7.0); Hematocrit 44.4 % (36.0-46.0); Hemoglobin 14.7 g/dL (12.2-16.2); Lymphocytes # (auto) 0.3 10 ^3/uL (0.4-5.4); Lymphocytes % (auto) 1.8 % (10.0-50.0); Mean Corpuscular Hemoglobin 28.1 pg (28.0-32.0); Mean Corpuscular Hgb Conc. 33.1 g/dL (32.0-36.0); Mean Corpuscular Volume 84.9 fL (80.0-100.0); Monocytes # (auto) 0.6 10 ^3/uL (0-1.3); Monocytes % (auto) 3.8 % (0.0-12.0); Neutrophils # (auto) 15.8 10 ^3/uL (1.6-8.6); Red Blood Cells 5.23 10^6/uL (4.0-5.20); White Blood Cell 16.7 10^3/uL (4.4-10.8)
[2021-06-23 07:52] LABS: Albumin 2.1 g/dL (3.4-5.0); BUN/Creatinine Ratio 62.3; Calcium 9.1 mg/dL (8.5-10.1); Potassium 4.3 mmol/L (3.5-5.1)
[2021-06-23 07:55] LABS: Bilirubin, Total 1.5 mg/dL (0.2-1.0); Magnesium 2.4 mg/dL (1.6-2.6); Phosphorus 2.2 mg/dL (2.5-4.90); Total Protein 6.1 g/dL (6.4-8.2)
[2021-06-23] MEDS: LORazepam 2MG/ML-1ML VIAL IV PRN ×2 (09:12→16:45)
[2021-06-23] MEDS: ZINC SULFATE 220mg CAP or TAB PO SCH (09:23)
[2021-06-23] MEDS: POTASSIUM CHL 20 Meq TABLET PO SCH (09:23)
[2021-06-23] MEDS: PREGABALIN 25 MG CAP PO SCH ×2 (09:23→21:45)
[2021-06-23] MEDS: PANTOPRAZOLE 40 MG/10 ML VIAL INJ IV SCH (09:23)
[2021-06-23] MEDS: DexAMETHasone SOD PHOS 10MG/1ML VIAL INJ IV SCH (09:23)
[2021-06-23] MEDS: CHOLECALCIFEROL (VITD3) 2,000 UNIT CAP/TAB PO SCH (09:24)
[2021-06-23] MEDS: ASCORBIC ACID 1,000 MG TAB PO SCH (09:24)
[2021-06-23] MEDS: CLOPIDOGREL BISULFATE 75 MG TAB PO SCH (09:24)
[2021-06-23] MEDS ORDERED: POTASSIUM PHOSPHATE 22 MEQ in SODIUM CHL 0.9% 100 ML IV ONE ×2 (11:45→12:15)
[2021-06-23] MEDS: PPN PER PHARMACY IV NR ×6 (19:57)
[2021-06-23] MEDS: MAGNESIUM SULF IV NR ×7 (20:31)
[2021-06-23] MEDS: FAT EMULSION IV NR ×7 (20:31)
[2021-06-23] MEDS: [UNRECOGNIZED DRUG - OTHER] IV NR ×7 (20:31)
[2021-06-23] MEDS: POTASSIUM PHOSPHATE IV NR ×7 (20:31)
[2021-06-23] MEDS: ATORVASTATIN 20 MG TAB PO SCH (21:45)
[2021-06-24] VITALS (11 sets, daily range): BP systolic 116–167; BP diastolic 50–74
[2021-06-24] MEDS: ONDANSETRON HCL 4 MG/2 ML VIAL IV PRN ×5 (01:59→20:33)
[2021-06-24] MEDS: MORPHINE SULFATE INJECTION 2 MG/ML SYRG IV PRN ×5 (01:59→20:32)
[2021-06-24] MEDS: ALBUTEROL SULF 2.5 MG/0.5ML(0.5%) NEB SOLN NEB PRN (05:33)
[2021-06-24] MEDS: BUDESONIDE (INHALATION) 0.5 MG/2 ML NEB NEB SCH ×2 (05:33→19:00)
[2021-06-24] MEDS: InsuLIN REG 1unit/0.01ml Soln (100units/ml) SC SCH ×3 (05:51→17:37)
[2021-06-24] MEDS: ACCU-CHEK COMFORT CURVE STRIP VI SCH ×3 (05:51→17:35)
[2021-06-24] MEDS: LEVOTHYROXINE SODIUM 112 MCG TAB PO SCH (05:52)
[2021-06-24] MEDS: PANTOPRAZOLE 40 MG/10 ML VIAL INJ IV SCH (08:38)
[2021-06-24] MEDS: ZINC SULFATE 220mg CAP or TAB PO SCH (08:38)
[2021-06-24] MEDS: DexAMETHasone SOD PHOS 10MG/1ML VIAL INJ IV SCH (08:38)
[2021-06-24] MEDS: PREGABALIN 25 MG CAP PO SCH ×2 (08:38→21:27)
[2021-06-24] MEDS: ENOXAPARIN SOD 40 MG/0.4 ML SYRINGE SC SCH (08:40)
[2021-06-24] MEDS: CLOPIDOGREL BISULFATE 75 MG TAB PO SCH (08:40)
[2021-06-24] MEDS: LORazepam 2MG/ML-1ML VIAL IV PRN ×2 (10:06→17:10)
[2021-06-24] MEDS: FAMOTIDINE (10MG/ML) 2ML VL IV SCH ×2 (11:25→21:55)
[2021-06-24] MEDS: ENALAPRILAT 1.25 MG/ML-1ML VIAL IV PRN (11:26)
[2021-06-24 14:47] LABS: Albumin 2.1 g/dL (3.4-5.0); Anion Gap 5 (5-15); Calcium 8.9 mg/dL (8.5-10.1); Carbon Dioxide 28 mmol/L (21-32); Chloride 113 mmol/L (98-107); Glucose 204 mg/dL (74-106); Magnesium 2.7 mg/dL (1.6-2.6); Potassium 4.4 mmol/L (3.5-5.1); Sodium 146 mmol/L (136-145)
[2021-06-24 14:50] LABS: Alanine Aminotransferase 28 U/L (13-56); Alkaline Phosphatase 175 U/L (45-117); Aspartate Aminotransferase 55 U/L (15-37); Bilirubin, Total 1.6 mg/dL (0.2-1.0); GFR African American 85 mL/min; GFR Non-African American 70 mL/min; Phosphorus 3.4 mg/dL (2.5-4.90); Total Protein 5.5 g/dL (6.4-8.2)
[2021-06-24 15:56] LABS: BUN/Creatinine Ratio 65.5; Blood Urea Nitrogen 55 mg/dL (7-18)
[2021-06-24] MEDS: FAT EMULSION IV NR ×7 (19:59)
[2021-06-24] MEDS: [UNRECOGNIZED DRUG - OTHER] IV NR ×7 (19:59)
[2021-06-24] MEDS: POTASSIUM PHOSPHATE IV NR ×7 (19:59)
[2021-06-24] MEDS: MAGNESIUM SULF IV NR ×7 (19:59)
[2021-06-24] MEDS ORDERED: PPN PER PHARMACY IV NR ×6 (20:00)
[2021-06-24] MEDS: ATORVASTATIN 20 MG TAB PO SCH (21:27)
[2021-06-25] VITALS (11 sets, daily range): BP systolic 130–185; BP diastolic 45–86
[2021-06-25] MEDS: ACCU-CHEK COMFORT CURVE STRIP VI SCH ×5 (00:47→23:43)
[2021-06-25] MEDS: InsuLIN REG 1unit/0.01ml Soln (100units/ml) SC SCH ×5 (00:48→23:45)
[2021-06-25] MEDS: ONDANSETRON HCL 4 MG/2 ML VIAL IV PRN ×2 (03:37→22:39)
[2021-06-25] MEDS: MORPHINE SULFATE INJECTION 2 MG/ML SYRG IV PRN ×5 (03:38→22:39)
[2021-06-25] MEDS: BUDESONIDE (INHALATION) 0.5 MG/2 ML NEB NEB SCH ×2 (05:53→21:19)
[2021-06-25] MEDS: ALBUTEROL SULF 2.5 MG/0.5ML(0.5%) NEB SOLN NEB PRN ×2 (05:54→21:19)
[2021-06-25] MEDS: LEVOTHYROXINE SODIUM 112 MCG TAB PO SCH (06:14)
[2021-06-25 08:13] LABS: Albumin 2.1 g/dL (3.4-5.0); Calcium 9.3 mg/dL (8.5-10.1); Magnesium 2.5 mg/dL (1.6-2.6); Potassium 3.9 mmol/L (3.5-5.1)
[2021-06-25] MEDS: DexAMETHasone SOD PHOS 10MG/1ML VIAL INJ IV SCH ×2 (08:17→21:43)
[2021-06-25] MEDS: ENOXAPARIN SOD 40 MG/0.4 ML SYRINGE SC SCH (08:17)
[2021-06-25] MEDS: FAMOTIDINE (10MG/ML) 2ML VL IV SCH ×2 (08:17→21:43)
[2021-06-25 08:22] LABS: BUN/Creatinine Ratio 67.4; Bilirubin, Total 1.5 mg/dL (0.2-1.0); CRP High Sensitivity 9.57 mg/dL (< 0.3); Phosphorus 3.3 mg/dL (2.5-4.90); Total Protein 6.3 g/dL (6.4-8.2)
[2021-06-25] MEDS: ENALAPRILAT 1.25 MG/ML-1ML VIAL IV PRN (09:35)
[2021-06-25] MEDS: PREGABALIN 25 MG CAP PO SCH ×2 (09:49→21:43)
[2021-06-25] MEDS: ZINC SULFATE 220mg CAP or TAB PO SCH (09:49)
[2021-06-25] MEDS: CLOPIDOGREL BISULFATE 75 MG TAB PO SCH (09:49)
[2021-06-25] MEDS ORDERED: PPN PER PHARMACY IV NR ×6 (20:00)
[2021-06-25] MEDS: LORazepam 2MG/ML-1ML VIAL IV PRN (20:16)
[2021-06-25] MEDS: ATORVASTATIN 20 MG TAB PO SCH (21:43)
[2021-06-25] MEDS: ENOXAPARIN SOD 100 MG/1 ML SYRINGE SC SCH (21:43)
[2021-06-25] MEDS ORDERED: ENOXAPARIN SOD 40 MG/0.4 ML SYRINGE SC SCH (22:00)
[2021-06-26] VITALS (11 sets, daily range): BP systolic 123–151; BP diastolic 51–77
[2021-06-26] MEDS: ONDANSETRON HCL 4 MG/2 ML VIAL IV PRN (02:49)
[2021-06-26] MEDS: MORPHINE SULFATE INJECTION 2 MG/ML SYRG IV PRN ×3 (02:49→22:32)
[2021-06-26 05:39] LABS: Potassium 5.1 mmol/L (3.5-5.1)
[2021-06-26 05:44] LABS: Albumin 1.9 g/dL (3.4-5.0); Calcium 9.1 mg/dL (8.5-10.1); Magnesium 2.6 mg/dL (1.6-2.6)
[2021-06-26] MEDS: ACCU-CHEK COMFORT CURVE STRIP VI SCH ×3 (05:47→18:10)
[2021-06-26] MEDS: InsuLIN REG 1unit/0.01ml Soln (100units/ml) SC SCH ×3 (05:48→18:11)
[2021-06-26 06:02] LABS: BUN/Creatinine Ratio 75.3; Bilirubin, Total 1.3 mg/dL (0.2-1.0); Phosphorus 3.7 mg/dL (2.5-4.90)
[2021-06-26] MEDS: LEVOTHYROXINE SODIUM 112 MCG TAB PO SCH (06:06)
[2021-06-26] MEDS: PREGABALIN 25 MG CAP PO SCH ×2 (09:41→22:00)
[2021-06-26] MEDS: FAMOTIDINE (10MG/ML) 2ML VL IV SCH ×2 (09:41→22:20)
[2021-06-26] MEDS: ZINC SULFATE 220mg CAP or TAB PO SCH (09:41)
[2021-06-26] MEDS: DexAMETHasone SOD PHOS 10MG/1ML VIAL INJ IV SCH ×2 (09:41→22:15)
[2021-06-26] MEDS: CLOPIDOGREL BISULFATE 75 MG TAB PO SCH (09:42)
[2021-06-26] MEDS: ENOXAPARIN SOD 100 MG/1 ML SYRINGE SC SCH ×2 (09:42→22:20)
[2021-06-26] MEDS: LORazepam 2MG/ML-1ML VIAL IV PRN ×2 (11:33→19:35)
[2021-06-26] MEDS: PPN PER PHARMACY IV NR ×6 (19:34)
[2021-06-26] MEDS: ATORVASTATIN 20 MG TAB PO SCH (22:00)
[2021-06-26] MEDS: ALBUTEROL SULF 2.5 MG/0.5ML(0.5%) NEB SOLN NEB PRN (22:06)
[2021-06-26] MEDS: BUDESONIDE (INHALATION) 0.5 MG/2 ML NEB NEB SCH (22:07)
[2021-06-27] MEDS: ACCU-CHEK COMFORT CURVE STRIP VI SCH ×4 (00:44→17:49)
[2021-06-27] MEDS: InsuLIN REG 1unit/0.01ml Soln (100units/ml) SC SCH ×4 (00:44→18:06)
[2021-06-27] MEDS: LORazepam 2MG/ML-1ML VIAL IV PRN ×3 (00:45→19:35)
[2021-06-27] MEDS: MORPHINE SULFATE INJECTION 2 MG/ML SYRG IV PRN ×2 (02:53→10:15)
[2021-06-27 05:00] VITALS: BP 130/70
[2021-06-27] MEDS: ALBUTEROL SULF 2.5 MG/0.5ML(0.5%) NEB SOLN NEB PRN (05:58)
[2021-06-27] MEDS: BUDESONIDE (INHALATION) 0.5 MG/2 ML NEB NEB SCH (05:58)
[2021-06-27] MEDS: LEVOTHYROXINE SODIUM 112 MCG TAB PO SCH (06:02)
[2021-06-27 07:12] LABS: Basophils # (auto) 0.1 10 ^3/uL (0-0.2); Basophils % (auto) 0.5 % (0.0-2.0); Eosinophils # (auto) 0 10 ^3/uL (0-0.8); Hematocrit 45.6 % (36.0-46.0); Hemoglobin 14.6 g/dL (12.2-16.2); Lymphocytes # (auto) 0.4 10 ^3/uL (0.4-5.4); Lymphocytes % (auto) 2.1 % (10.0-50.0); Mean Corpuscular Hemoglobin 27.9 pg (28.0-32.0); Mean Corpuscular Hgb Conc. 31.9 g/dL (32.0-36.0); Mean Corpuscular Volume 87.3 fL (80.0-100.0); Monocytes # (auto) 0.6 10 ^3/uL (0-1.3); Monocytes % (auto) 3.3 % (0.0-12.0); Neutrophils # (auto) 18.3 10 ^3/uL (1.6-8.6); Neutrophils % (auto) 94.1 % (37.0-80.0); Red Blood Cells 5.22 10^6/uL (4.0-5.20); Red Cell Distribution Width 14.3 % (11.8-14.3); White Blood Cell 19.5 10^3/uL (4.4-10.8)
[2021-06-27 08:45] VITALS: BP 137/72
[2021-06-27] MEDS: DexAMETHasone SOD PHOS 10MG/1ML VIAL INJ IV SCH (09:46)
[2021-06-27] MEDS: ENOXAPARIN SOD 100 MG/1 ML SYRINGE SC SCH (09:47)
[2021-06-27] MEDS: FAMOTIDINE (10MG/ML) 2ML VL IV SCH (09:47)
[2021-06-27] MEDS: ZINC SULFATE 220mg CAP or TAB PO SCH (10:00)
[2021-06-27] MEDS: CLOPIDOGREL BISULFATE 75 MG TAB PO SCH (10:00)
[2021-06-27] MEDS: PREGABALIN 25 MG CAP PO SCH (10:00)
[2021-06-27 10:33] LABS: Magnesium 2.5 mg/dL (1.6-2.6); Potassium 4.7 mmol/L (3.5-5.1)
[2021-06-27 12:11] LABS: BUN/Creatinine Ratio 81.4; Calcium 9.4 mg/dL (8.5-10.1)
[2021-06-27 12:12] LABS: Albumin 2.2 g/dL (3.4-5.0); Bilirubin, Total 1.6 mg/dL (0.2-1.0); Phosphorus 3.2 mg/dL (2.5-4.90)
[2021-06-27 13:00] VITALS: BP 117/61
[2021-06-27 17:00] VITALS: BP 99/59
[2021-06-27] MEDS: PPN PER PHARMACY IV NR ×6 (19:34)
[2021-06-27] MEDS ORDERED: PPN PER PHARMACY IV NR ×6 (20:00)
[2021-06-27] MEDS ORDERED: NOREPINEPHRINE 8 MG/250ML KIT 250 ML IV SCH (21:30)
[2021-06-28] MEDS ORDERED: EPINEPHrine HCL 1 MG/10 ML SYRG IV ONE (01:10)
== END 2021-06-27 21:48 | DRG 177 ==
LOC: EDBD 09:49 → ER 09:49 → TELE 12:25 → TELE-E-ADS 16:40 → TELE-EAST 06-13 11:37 → TELE-E-ADS 06-13 11:38
PROVIDERS: ADMIT Hospitalist; ATTEND Internal Medicine
PROC: XW033E5 Introduction of Remdesivir Anti-infective into Peripheral Vein, Percutaneous Approach, New Technology Group 5 (ICD-10-PCS; 2021-06-10)
PROC: 5A0935A Assistance with Respiratory Ventilation, Less than 24 Consecutive Hours, High Flow/Velocity Cannula (ICD-10-PCS; 2021-06-11)
PROC: 05HF33Z Insertion of Infusion Device into Left Cephalic Vein, Percutaneous Approach (ICD-10-PCS; 2021-06-13)
PROC: B54NZZA Ultrasonography of Left Upper Extremity Veins, Guidance (ICD-10-PCS; 2021-06-13)
PROC: 5A09557 Assistance with Respiratory Ventilation, Greater than 96 Consecutive Hours, Continuous Positive Airway Pressure (ICD-10-PCS; 2021-06-13)
PROC: 3E0336Z Introduction of Nutritional Substance into Peripheral Vein, Percutaneous Approach (ICD-10-PCS; 2021-06-13)
PROC: 05H933Z Insertion of Infusion Device into Right Brachial Vein, Percutaneous Approach (ICD-10-PCS; 2021-06-19)
PROC: B54MZZA Ultrasonography of Right Upper Extremity Veins, Guidance (ICD-10-PCS; 2021-06-19)
PROC: 5A12012 Performance of Cardiac Output, Single, Manual (ICD-10-PCS; principal; 2021-06-27)
DX: U07.1 COVID-19 (principal); J96.01 Acute respiratory failure with hypoxia; J12.82 Pneumonia due to coronavirus disease 2019; N17.9 Acute kidney failure, unspecified; E87.1 Hypo-osmolality and hyponatremia; I13.0 Hypertensive heart and chronic kidney disease with heart failure and stage 1 through stage 4 chronic kidney disease, or unspecified chronic kidney disease; J44.0 Chronic obstructive pulmonary disease with (acute) lower respiratory infection; I82.441 Acute embolism and thrombosis of right tibial vein; I46.9 Cardiac arrest, cause unspecified; Z66 Do not resuscitate; D89.839 Cytokine release syndrome, grade unspecified; N18.31 Chronic kidney disease, stage 3a; K21.9 Gastro-esophageal reflux disease without esophagitis; E66.01 Morbid (severe) obesity due to excess calories; Z23 Encounter for immunization; M06.9 Rheumatoid arthritis, unspecified; I50.9 Heart failure, unspecified; E11.42 Type 2 diabetes mellitus with diabetic polyneuropathy; E03.9 Hypothyroidism, unspecified; R77.8 Other specified abnormalities of plasma proteins; E11.22 Type 2 diabetes mellitus with diabetic chronic kidney disease; E11.65 Type 2 diabetes mellitus with hyperglycemia; E78.5 Hyperlipidemia, unspecified; Z68.32 Body mass index [BMI] 32.0-32.9, adult; Z88.6 Allergy status to analgesic agent; Z88.0 Allergy status to penicillin; Z79.4 Long term (current) use of insulin
CPT/HCPCS: 36415; 36600; 71045; 80053; 82040; 82306; 82728; 82805; 82962; 83036; 83605; 83615; 83690; 83735; 83880; 84100; 84443; 84478; 84484; 85007; 85025; 85027; 85379; 85610; 85730; 86141; 87040; 87426; 92507; 92610; 92950; 93005; 93970; 94640; 94660; 96365; 96367; 96368; 96375; 99291; C9113; G0378; J0696; J1100; J1815; J2405; J3490; P9047